=== PATIENT | male | born 1980 | race Caucasian/White ===

== ENCOUNTER 2020-07-20 18:59 | Emergency (ER) | payer OTHER ==
[~2020-07-20] VITALS: Ht 175.3 cm; Wt 75.3 kg
[2020-07-20 19:07] VITALS: Ht 175.3 cm; Wt 75.3 kg
[2020-07-20 21:25] LABS: AMPHETAMINE QUAL UR POSITIVE (See below)
[2020-07-20 21:36] VITALS: BP 110/83
== END 2020-07-20 21:36 | disposition home or self-care (01) ==
LOC: ED 18:59
PROVIDERS: Emergency Medicine
DX: R07.89 Other chest pain (principal); F22 Delusional disorders
CPT/HCPCS: 83880; Q0092